=== PATIENT | female | born 1985 | race Two or more races ===

== ENCOUNTER 2023-06-15 23:47 | Emergency (ER) | payer OTHER ==
[~2023-06-15] VITALS: Ht 157.5 cm; Wt 95.3 kg
[2023-06-16] MEDS ORDERED: ATORVASTATIN CA20 MG PO (00:13)
[2023-06-16] MEDS ORDERED: SYNTHROID88 MCG PO (00:14)
[2023-06-16] MEDS ORDERED: OxyCODONE HCL/APAP UD (PERCOCET) PO STA (05:41)
== END 2023-06-16 06:36 | disposition home or self-care (01) ==
LOC: ER 23:47 → EDBD 23:47 → ER 06-16 00:26
DX: S80.02XA Contusion of left knee, initial encounter (principal); W54.1XXA Struck by dog, initial encounter; Y93.89 Activity, other specified; Y92.89 Other specified places as the place of occurrence of the external cause; Z88.6 Allergy status to analgesic agent; S82.122A Displaced fracture of lateral condyle of left tibia, initial encounter for closed fracture